=== PATIENT | male | born 1990 | race Native Hawaiian/Other Pacific Islander ===

== ENCOUNTER 2018-01-02 19:41 | Emergency (ER) | payer OTHER ==
[~2018-01-02] VITALS: Ht 180.3 cm; Wt 74.8 kg
[2018-01-02 20:21] LABS: PLATELET COUNT 157 K/uL (142-355)
[2018-01-02 20:29] LABS: POTASSIUM 3.4 mmol/L (3.6-5.2)
[2018-01-02 20:58] VITALS: BP 119/73; TEMP 98.6
== END 2018-01-02 21:15 | disposition home or self-care (01) ==
LOC: ED 19:41
PROVIDERS: Emergency Medicine
DX: L03.116 Cellulitis of left lower limb (principal); L03.115 Cellulitis of right lower limb
CPT/HCPCS: 36415; 80053; 80307; 85027; 96360; 96365; 99284; J0696